=== PATIENT | male | born 1960 | race Caucasian/White ===

== ENCOUNTER 2017-06-08 14:17 | Observation (INO) | payer SELFPAY ==
[~2017-06-08] VITALS: Ht 188 cm; Wt 109.8 kg
[~2017-06-08 14:17] MED LIST: BACT800T5 PO; CEPH-460 PO; PROPOFOL 200 MG/20 ML AMP IV ONE
[2017-06-08 14:19] VITALS: BP 170/95; PULSE 63; RESP 18; TEMP 98.4; O2SAT 98
--- NOTE | 2017-06-08 14:27 | PD ---
HPI . Crush injury, right hand Chief Complaint: Injury Time Seen by Provider: 14:22 Travel History International Travel<30 days: No Contact w/Intl Traveler<30days: No Traveled to known affect area: No History of Present Illness HPI This patient presents to us as a transfer from [place] for an open fracture of the right hand. The patient's tetanus has been updated. He has been given Ancef, 2 g IV. The plan was to give him gentamicin as well but that could not be accomplished prior to transfer. The patient voices no needs at this time. He realizes that he needs to stay nothing by mouth. He reports minimal pain. The x-ray done at [place] shows a right fourth metacarpal fracture. [facility] Past Medical History Diminished Hearing: No ?: Not Social History Alcohol Use: Yes (SOCIALLY) Tobacco Use: No Substance Use: No Allergies-Medications (Allergen,Severity, Reaction): Coded Allergies: No Known Allergies (Unverified , 06/08/17) Reported Meds & Prescriptions Reported Meds & Active Scripts Active No Active Prescriptions or Reported Medications Review of Systems Except as stated in HPI: all other systems reviewed are Neg Musculoskeletal: Positive: Pain Skin: Positive Other (lacerations) Physical Exam Narrative GENERAL: Patient is awake and alert and is in no distress. SKIN: He has a bulky dressing in place on his right hand. HEAD: Normocephalic/atraumatic. EYES: Extraocular movements are intact. NECK: Full range of motion. CARDIOVASCULAR: Regular rate and rhythm. RESPIRATORY: Nonlabored respirations. MUSCULOSKELETAL: Right hand is in a bulky dressing. NEUROLOGICAL: No localizing neurological signs or symptoms. PSYCHIATRIC: Appropriate mood and affect. Data Data Last Documented VS Vital Signs Date Time Temp Pulse Resp B/P (MAP) Pulse Ox O2 Delivery O2 Flow Rate FiO2 06/08/17 14:19 98.4 63 18 170/95 (120) 98 Orders Orders Gentamicin Inj (Gentamicin Inj) (06/08/17 14:30) [facility] Medical Decision Making Medical Screen Exam Complete: Yes Emergency Medical Condition: Yes Medical Record Reviewed: Yes (records from [place] were reviewed. He has an open fracture of the right hand. He has been treated there with tetanus and Ancef. Gentamicin is needed.) Differential Diagnosis Differential diagnosis of extremity trauma includes but is not limited to fracture, sprain or strain, dislocation, contusion Narrative Course This patient presents for treatment by a hand surgeon for an open fracture of the hand. Dr. Cadena has been aware of the patient's arrival. Dr. Cadena just asks that I keep the patient NPO. Diagnosis Primary Impression: Fracture of fourth metacarpal bone of right hand Qualified Codes: S62.324D - Displaced fracture of shaft of fourth metacarpal bone, right hand, subsequent encounter for fracture with routine healing Scripts No Active Prescriptions or Reported Meds Disposition: 01 DISCHARGE HOME Condition: Stable Amalia Zimmer MD Jun 08, 2017 14:27
[2017-06-08] MEDS ORDERED: GENTAMICIN INJ 80 MG in SODIUM CHLORIDE 0.9% INJ 100 ML IV ONE (14:30)
[2017-06-08] MEDS ORDERED: GENTAMICIN/SOD CHL 80 MG/100 ML IV ONE (14:45)
[2017-06-08] MEDS ORDERED: LACTATED RINGER'S 1000 ML IV PRN (17:30)
[2017-06-08] MEDS ORDERED: POVIDONE IODINE 5% (ANTISEPSIS KIT) 4 APPLICATIONS EACH NARE PRN (17:30)
[2017-06-08] MEDS ORDERED: METOPROLOL TARTRATE 25 MG TAB PO PRN (17:30)
[2017-06-08] MEDS ORDERED: CHLORHEXIDINE GLUCONATE 2 % 1 PACK (2 CLOTHS) TOPICAL PRN (17:30)
[2017-06-08] MEDS ORDERED: INSULIN HUMAN REGULAR 1,000 UNITS/10 ML VIAL SQ PRN (17:30)
[2017-06-08] MEDS ORDERED: SODIUM CHLORID 0.9% 500 ML IV PRN (17:30)
[2017-06-08] MEDS ORDERED: NEOMYCIN/POLYMYXIN 1 ML G.U. IRRIGANT ONE ×2 (17:58→18:37)
[2017-06-08] MEDS ORDERED: BUPIVACAINE HCL PF 0.25% 30 ML VIAL ONE (17:58)
[2017-06-08] MEDS ORDERED: LIDOCAINE HCL 2% 50 ML VIAL ONE (17:58)
[2017-06-08] MEDS ORDERED: HYDROmorphone HCL PF 2 MG/ML VIAL ONE (18:03)
[2017-06-08] MEDS ORDERED: ONDANSETRON HCL 4 MG/2 ML VIAL ONE (18:03)
[2017-06-08] MEDS ORDERED: METOCLOPRAMIDE HCL 10 MG/2 ML VIAL ONE (18:04)
[2017-06-08] MEDS ORDERED: FAMOTIDINE 20 MG/2 ML VIAL ONE (18:04)
[2017-06-08] MEDS ORDERED: MIDAZOLAM HCL 2 MG/2 ML VIAL ONE (18:06)
[2017-06-08] MEDS ORDERED: DEXAMETHASONE SOD PHOS 4 MG/ML VIAL ONE (18:06)
[2017-06-08] MEDS ORDERED: ceFAZolin INJ 1,000 MG VIAL ONE (18:42)
[2017-06-08] MEDS ORDERED: *MEPERIDINE 25 MG INJ VIAL PERIprocedural Use ONLY ONE (20:00)
--- NOTE | 2017-06-08 20:03 | MB ---
cc: MERNA MARSHALL III, M.D. DATE OF CONSULTATION 06/08/17 HISTORY OF PRESENT ILLNESS The patient is a 56-year-old right-hand dominant male who presented to the [place] emergency room with a right hand injury. A piece of construction ___ and it penetrated his right hand giving him an open fracture of the right fourth metacarpal. He is given antibiotics and tetanus in the emergency room. PAST MEDICAL HISTORY Denies. PAST SURGICAL HISTORY Denied. MEDICATIONS Denied. ALLERGIES NO KNOWN DRUG ALLERGIES. SOCIAL HISTORY He does not smoke. REVIEW OF SYSTEMS The patient is not complaining of any headaches or blurry or double vision. He is not complaining of any cough or wheezing or shortness of breath. He is not complaining of any chest pain or palpitations. He is not complaining of any nausea, vomiting, abdominal pain. He is not complaining of any urinary frequency or urgency with urination. He is not complaining of spine, neck or back pain. He is not complaining of any night sweats, fevers or chills. He is not complaining of any anxiety, depression or suicidal ideations. IMAGING STUDIES X-rays were performed and reviewed and reveal a spiral fracture of the distal fourth metacarpal with some displacement and soft tissue injury. LABORATORY DATA Laboratory studies were done. These reveal white blood cell count 14.5, hemoglobin of 16.2 gm/dl, platelets 246,000, BUN, creatinine 23 and 1.30, essentially normal coags PHYSICAL EXAMINATION GENERAL: He is well-developed, well-nourished, no apparent distress. VITAL SIGNS: Temperature is 97.8, blood pressure 140/91, heart rate 50, respiratory rate 18, pulse ox 98% on room air. DIRECTED EXAMINATION: Examination of the right upper extremity reveals almost full active range of motion. He has a stellate laceration on the dorsal aspect of his right hand and another counter laceration in the fourth web space that goes on to the fifth finger at its ulnar side. He has all of his sensation intact. There are no areas of numbness. All musculotendinous units appear to be intact. Capillary refill is less 2 seconds in all fingertips. He is able to move his elbow normally. NEURO: He is awake, alert and oriented x3. He is very pleasant, sitting comfortably in his bed in the emergency room. IMPRESSION Open fracture right fourth metacarpal. PLAN The plan is to go urgently to the operating room. He made his way over here from [place] and we are waiting for anesthesia to give us the go ahead. The patient understands he is not going to be able to use his hand for 6 weeks and he is going to be admitted for 24 hours for IV antibiotics. He understands, agrees, wishes to proceed. He understands the risks include but are not limited to heart attack, stroke, , bleeding, risk of injury to blood vessels, tendons, nerves, bone and requested we proceed. MD GHASSAN Benavidez III/GEORGI /4:54 PM /7:41 PM
[2017-06-08] MEDS ORDERED: HYDROmorphone HCL PF 1 MG/ML VIAL ONE (20:15)
[2017-06-08] MEDS ORDERED: CEPH-460 PO (20:26)
[2017-06-08] MEDS ORDERED: HYDR-3288 PO (20:26)
[2017-06-08] MEDS ORDERED: MEPERIDINE HCL 50 MG/ML VIAL IM PRN (22:00)
[2017-06-08] MEDS ORDERED: ACETAMINOPHEN/HYDROcodone 325 MG/5 MG TAB PO PRN (22:00)
[2017-06-08] MEDS ORDERED: SODIUM CHLORIDE FLUSH PRN IV FLUSH (22:00)
[2017-06-08] MEDS: GENTAMICIN INJ 160 MG in SODIUM CHLORIDE 0.9% INJ 100 ML IV SCH (22:21)
[2017-06-08 23:14] VITALS: BP 124/71; PULSE 92; RESP 16; TEMP 97.7; O2SAT 98
[2017-06-09] MEDS: ceFAZolin 1,000 MG/NS 100 ML IV SCH ×6 (01:00→13:00)
[2017-06-09 04:00] VITALS: BP 127/79; PULSE 64; RESP 20; TEMP 96.1; O2SAT 94
[2017-06-09] MEDS: GENTAMICIN INJ 160 MG in SODIUM CHLORIDE 0.9% INJ 100 ML IV SCH (06:17)
[2017-06-09] MEDS ORDERED: SODIUM CHLORIDE FLUSH BID IV FLUSH SCH (09:00)
[2017-06-09 09:02] VITALS: BP 145/91; PULSE 71; RESP 15; TEMP 97.8; O2SAT 95
--- NOTE | 2017-06-09 10:43 | MP ---
cc: ZACHERY CADENA III, M.D. DATE OF SURGERY 06/08/2017 PREOPERATIVE DIAGNOSIS Open right fourth metacarpal fracture. PROCEDURE 1. Open reduction and pinning right fourth metacarpal. 2. Debridement of skin, subcutaneous tissue and bone associated with open right fourth metacarpal fracture. 3. Complex wound closure right hand fourth webspace, 4 cm. 4. Use of image intensifier. SURGEON Zachery Cadena III, MD PROCEDURE The patient was brought to the operating room and placed supine on the operating room table. After the correct site and side of the surgery were verified by members of each team in the room multiple times including the patient and myself and after adequate general anesthesia had been achieved, the right upper extremity was prepped and draped in the traditional sterile surgical fashion. The skin was retracted and cultures were obtained from the bone. There was very mild contamination. 3 liters of saline irrigation was then used on a pulse lavage, pulse garbage stoker to thoroughly washout the entire area as well with the bone being the focus of irrigation. Once this was done, three separate 0.045-cm K-wires were advanced in antegrade and retrograde fashion reducing and holding the reduction. A single 0 Vicryl tie was placed around the shaft of the bone to provide a little extra support. Thorough irrigation was performed again. Of note, the fifth EDC tendon was shredded and was in no way able to be repaired but the EDM and EDQ tendons were intact and out of the area of the injury. There was mild disruption of the dorsal intrinsic muscles between the fourth and fifth metacarpals and otherwise the fourth dorsal compartment was intact. There were no other anatomic abnormalities. Thorough irrigation was performed again. The skin edges were then loosely reapproximated using interrupted and running 4-0 nylon sutures. The laceration in the fourth web space was then thoroughly irrigated with saline and then loosely closed using interrupted 4-0 chromic sutures. The hand and arm were then thoroughly cleansed and dried. Betadine and Adaptic dressing was applied on top of the wound. The K-wires were tailored to length, cut and bent. Jurgan's balls were applied. Xeroform was applied. Betadine was applied around the pin sites. A well-padded, well molded short-arm, very bulky immobilizing splint was made leaving the thumb free. The axillary tourniquet was never used. The patient was awakened from anesthesia and transported to the Post-Anesthesia Care Unit awake and in stable condition at the end of the case. Sponge, needle and instrument counts were correct at the end of the case as reported by the nurses in the room. MD GHASSAN Benavidez III/OLEG /8:14 PM /9:47 AM
--- NOTE | 2017-06-09 11:08 | PD.CONS ---
HPI Service [facility] Consult Requested By Primary Care Physician No Primary Care Physician Diagnoses: History of Present Illness This is a 56-year-old male with no past medical history who injured his right hand on a piece of construction equipment yesterday. He suffered an open fracture of the right fourth metacarpal. He was taken to the OR yesterday by Dr. Cadena for open reduction internal fixation. Today he states his pain is controlled. He denies any past medical history but admits he does not go to the doctor regularly. 10 point review systems otherwise negative. Past Family Social History Allergies: Coded Allergies: No Known Allergies (Unverified , 06/08/17) Family History Reviewed and noncontributory Social History He does not smoke. He does drink one to 2 from and cokes per night. Physical Exam Vital Signs Vital Signs Date Time Temp Pulse Resp B/P (MAP) Pulse Ox O2 Delivery O2 Flow Rate FiO2 06/09/17 09:02 97.8 71 15 145/91 (109) 95 06/09/17 04:00 96.1 64 20 127/79 (95) 94 06/08/17 23:14 97.7 92 16 124/71 (88) 98 06/08/17 21:20 98.0 72 15 147/83 (104) 94 Nasal Cannula 3 06/08/17 21:05 68 16 157/90 (112) 95 Nasal Cannula 3 06/08/17 20:50 83 15 150/91 (110) 95 Nasal Cannula 3 06/08/17 20:35 82 16 154/97 (116) 94 Nasal Cannula 3 06/08/17 20:20 94 16 153/93 (113) 94 Nasal Cannula 3 06/08/17 20:05 98.6 80 16 155/88 (110) 92 Nasal Cannula 3 06/08/17 17:37 98.4 63 18 170/95 (120) 98 06/08/17 14:19 98.4 63 18 170/95 (120) 98 Physical Exam GENERAL: Well-nourished, well-developed patient. SKIN: Warm and dry. HEAD: Normocephalic. EYES: No scleral icterus. No injection or drainage. NECK: Supple, trachea midline. No JVD or lymphadenopathy. CARDIOVASCULAR: Regular rate and rhythm without murmurs, gallops, or rubs. RESPIRATORY: Breath sounds equal bilaterally. No accessory muscle use. GASTROINTESTINAL: Abdomen soft, non-tender, nondistended. EXTREMITIES: No cyanosis, or edema. Right arm in splint. NEUROLOGICAL: Awake, alert, and oriented x 3. Non-focal. Laboratory Date/Time Source Procedure Growth Status 06/08/17 09:41 Wound Hand Gram Stain - Final Resulted 06/08/17 09:41 Wound Hand Wound Culture Pending Resulted Assessment and Plan Assessment and Plan Right fourth metacarpal open fracture status post ORIF with hand surgery yesterday. DVT prophylaxis with SCDs. Thank you for the consult. Ashlee Scott MD Jun 09, 2017 11:08
--- NOTE | 2017-06-09 11:58 | HHI.PR ---
Subjective Remarks comfortable no complaints Objective Vital Signs Date Time Temp Pulse Resp B/P (MAP) Pulse Ox O2 Delivery O2 Flow Rate FiO2 06/09/17 09:02 97.8 71 15 145/91 (109) 95 06/09/17 04:00 96.1 64 20 127/79 (95) 94 06/08/17 23:14 97.7 92 16 124/71 (88) 98 06/08/17 21:20 98.0 72 15 147/83 (104) 94 Nasal Cannula 3 06/08/17 21:05 68 16 157/90 (112) 95 Nasal Cannula 3 06/08/17 20:50 83 15 150/91 (110) 95 Nasal Cannula 3 06/08/17 20:35 82 16 154/97 (116) 94 Nasal Cannula 3 06/08/17 20:20 94 16 153/93 (113) 94 Nasal Cannula 3 06/08/17 20:05 98.6 80 16 155/88 (110) 92 Nasal Cannula 3 06/08/17 17:37 98.4 63 18 170/95 (120) 98 06/08/17 14:19 98.4 63 18 170/95 (120) 98 I/O 06/08/17 06/08/17 06/08/17 06/09/17 06/09/17 06/09/17 07:00 15:00 23:00 07:00 15:00 23:00 Intake Total 900 ml 360 ml Output Total 10 ml Balance 890 ml 360 ml Intake Oral 360 ml IV Total 100 ml Other 800 ml Output Estimated Blood Loss 10 ml # Voids 2 # Bowel Movements 0 Objective Remarks right UE splint intact; no bleeding NVI throughout comfortable CR<2sec all fingertips Assessment and Plan Problem List: (1) Fracture of fourth metacarpal bone of right hand ICD Codes: S62.304A - Unspecified fracture of fourth metacarpal bone, right hand, initial encounter for closed fracture Status: Acute Plan: d/c home after next round of IV abx elevate right UE time buyer f/u w me next week Problem Qualifiers (1) Fracture of fourth metacarpal bone of right hand: Qualified Codes: S62.324D - Displaced fracture of shaft of fourth metacarpal bone, right hand, subsequent encounter for fracture with routine healing Zachery Cadena III, MD Jun 09, 2017 11:58
[2017-06-09 12:45] VITALS: BP 129/83; PULSE 74; RESP 18; TEMP 98.2; O2SAT 94
--- NOTE | 2017-06-09 12:53 | EKG ---
Date Performed: 06/08/2017 Time Performed: 18:03:16 PTAGE: 56 years EKG: Sinus rhythm NORMAL ECG INTERPRETATION BASED ON A DEFAULT AGE OF 42 YEARS NO PREVIOUS TRACING DOCTOR: Tate Mcbride Interpretating Date/Time 06/09/2017 12:47:44
== END 2017-06-09 14:20 | disposition home or self-care (01) ==
LOC: PHED 14:17 → PH3B 21:50
PROVIDERS: ADMIT Orthopaedic Surgery Hand Surgery; ATTEND Orthopaedic Surgery Hand Surgery
DX: S62.304B Unspecified fracture of fourth metacarpal bone, right hand, initial encounter for open fracture (principal); S67.21XA Crushing injury of right hand, initial encounter; Z01.810 Encounter for preprocedural cardiovascular examination; W23.0XXA Caught, crushed, jammed, or pinched between moving objects, initial encounter
CPT/HCPCS: 01830; 11012; 13132; 26615; 71010; 73130; 76000; 80048; 85025; 85610; 85730; 87070; 87205; 90471; 90714; 93005; 96365; 96366; 96367; 99285; G0378; J0690; J1100; J1170; J1580; J2175; J2250; J2405; J2765; J3010; J7120